=== PATIENT | female | born 1980 | race Caucasian/White ===

== ENCOUNTER 2018-01-07 06:02 | Inpatient (IN) | payer BC ==
[~2018-01-07 06:02] MED LIST: Gentamicin ADULT (*) 300 MG in NS 0.9% 250 ML* 250 ML IVPB SCH
[2018-01-07] MEDS ORDERED: Sodium Citrate/Citric Acid* 15 ML UDC ONE (07:09)
[2018-01-07] MEDS ORDERED: Clindamycin 900 MG IVPREMIX(* 900 MG/50 ML SDV IV ONE (07:10)
[2018-01-07] MEDS ORDERED: oxyCODONE/Acetamin 5/325 MG* TAB PO PRN (07:32)
[2018-01-07] MEDS ORDERED: Glycerin ADULT SUPP PR PRN (07:32)
[2018-01-07] MEDS ORDERED: Dibucaine 1% 28.35 GM TUBE PR PRN (07:32)
[2018-01-07] MEDS ORDERED: Witch Hazel PAD* JAR TOPICAL PRN (07:32)
[2018-01-07] MEDS ORDERED: Ondansetron INJ* 2 MG/ML VIAL ONE (07:43)
[2018-01-07] MEDS ORDERED: OXYTOCIN* 10 UNITS/ML 1 ML VIAL ONE (07:43)
[2018-01-07] MEDS ORDERED: Ketorolac INJ* 30 MG/ML 1 ML VIAL ONE (07:43)
[2018-01-07] MEDS ORDERED: Bupivacaine-MPF SPINAL* 7.5 MG/ML - 2ML AMP ONE (07:44)
[2018-01-07] MEDS ORDERED: Lidocaine 2% PF * 5 ML VIAL ONE (07:44)
[2018-01-07] MEDS ORDERED: Acetaminophen IV 1GM/100ML * 1,000 MG/100 ML VIAL IVPB ONE (07:58)
[2018-01-07] MEDS ORDERED: HYDROmorphone INJ* 0.5 MG/0.5 ML SYRINGE IV PRN (07:58)
[2018-01-07] MEDS ORDERED: oxyCODONE TAB* 5 MG TAB PO PRN (07:58)
[2018-01-07] MEDS ORDERED: Naloxone* 0.4 MG/ML 1 ML VIAL IV PRN (07:58)
[2018-01-07] MEDS ORDERED: DiMENhydriNATE IV* 50 MG/ML VIAL IV PUSH PRN (07:58)
[2018-01-07] MEDS ORDERED: Oxytocin in LR* 20 UNITS/1,000 ML BAG IVPB SCH (08:00)
[2018-01-07] MEDS ORDERED: Phenylephrine IV* 40 MCG/ML 10 ML SYRINGE ONE ×2 (08:52→10:45)
[2018-01-07] MEDS: Simethicone TAB* 80 MG TAB.CHEW PO SCH ×3 (09:46→18:11)
[2018-01-07] MEDS: Docusate CAP* 100 MG PO SCH ×2 (09:46→14:08)
[2018-01-07 10:55] LABS: ABS Basophils 0.1 10^3/ul (0-0.2); ABS Eosinophils 0.1 10^3/ul (0-0.6); ABS Lymphocytes 2.5 10^3/ul (1.0-4.8); ABS Neutrophils 8.6 10^3/ul (1.5-7.7); ABS Nucleated RBC 0 10^3/ul; Eosinophil % 1.2 % (0-6); Hematocrit 31 % (35-47); Hemoglobin 10.5 g/dl (12.0-16.0); Lymphocyte % 20.4 % (25-47); Mean Corpuscular HGB Conc 34 g/dl (31-36); Mean Corpuscular Hemoglobin 30 pg (27-31); Mean Corpuscular Volume 89 fL (80-97); Nucleated Red Blood Cells % 0.1; Platelet Count 175 10^3/ul (150-450); Red Blood Count 3.45 10^6/ul (4.00-5.40); Red Cell Distribution Width 13 % (10.5-15); White Blood Count 12.4 10^3/ul (3.5-10.8)
[2018-01-07] MEDS ORDERED: Gentamicin ADULT (*) 40 MG/ML VIAL IVPB ONE (10:56)
[2018-01-07] MEDS ORDERED: Oxytocin in LR* 20 UNITS/1,000 ML BAG IVPB ONE (11:34)
[2018-01-07] MEDS: Ibuprofen TAB* 600 MG PO PRN ×2 (12:12→18:11)
--- NOTE | 2018-01-07 12:33 | OP ---
DATE OF OPERATION: 01/07/18 - ROOM #117 DATE OF : 76 SURGEON: Rebecca Don MD PATHOLOGY SECRETARY: Willard Steven MD ANESTHESIOLOGIST: Kirsten Kinney MD ANESTHESIA: Spinal. PRE-OP DIAGNOSES: Intrauterine , 38-0/7 weeks; prior myomectomy; desires repeat section. POST-OP DIAGNOSES: Intrauterine , 38-0/7 weeks; prior myomectomy; desires repeat section, delivered. OPERATIVE PROCEDURE: Repeat low transverse section with vacuum extraction of head. ESTIMATED BLOOD LOSS: 500 cc. URINE OUTPUT: 400 cc of clear yellow urine. FLUIDS: 1200 cc of crystalloid. FINDINGS: Revealed a vertex male, ROT, converted to vertex. No meconium, no nuchal cord, vigorous at , Apgars were 9 at one minute and 9 at five minutes, weight was 7 pounds and 8 ounces. Placenta was allowed to deliver spontaneously. Three-vessel cord intact. Normal-appearing tubes and ovaries bilaterally. No evidence of adhesions. Prior myomectomy seen with defect in the anterior uterine wall above the incisional site. COMPLICATIONS: None apparent. DISPOSITION: Stable to recovery room. DESCRIPTION OF PROCEDURE: The patient was placed in dorsal lithotomy position. The abdomen was prepped and draped in sterile standard fashion. Anesthesia confirming good anesthesia. Incision was made through prior incisional site with a scalpel. This was carried down to fascia. Fascia was scored in the midline. The fascial incision was extended laterally and superiorly. Fascia was taken down superiorly with a sharp dissection and inferiorly with blunt and sharp dissection. Peritoneum was then entered bluntly and extended bluntly. Bladder blade was inserted. Uterine segment was identified. Lower uterine segment was clamped with an Allis. An incision was made with scalpel, carried down through to the membranes. The incision was extended bluntly and amniotomy was then created for clear fluid. The head was found to be ROT, converted to direct OA. A vacuum was placed and the head was then extracted. No nuchal cord was appreciated. No meconium. Cord was allowed to pulse for greater than 60 seconds. Cord was then clamped doubly and then cut and the infant was handed off to waiting skidder, Dr. Hernandez. Appropriate cord blood was obtained. Placenta was allowed to deliver spontaneously. Uterus was exteriorized, cavity was wiped clean with moist laparotomy sponge, noted to be free of any membranes or placental tissue. The uterus was wrapped in a warm moist laparotomy sponge and tubes and ovaries were noted to have normal appearance. The hysterotomy site was then reapproximated using 0 Vicryl x2, first layer running locked, second layer running imbricated. Uterus was returned intraabdominally. Hysterotomy site was visualized and noted to be hemostatic. The peritoneum was then reapproximated using 3-0 Vicryl in a running fashion. Subfascial area was visualized and noted to be hemostatic. The fascia was then reapproximated using 0 Vicryl x2 in a running fashion. The subcutaneous Camper's fascia was lavaged. Hemostasis was assured with Bovie coagulation. It was greater than 2-cm thickness and the Camper's fascia was then reapproximated using 3-0 Vicryl x1 with multiple interrupted sutures for complete reapproximation of the space. The skin was then reapproximated using a 4-0 Monocryl and a subcuticular fashion. All sponge, needle, instrument, and blade counts were correct throughout the case. The patient tolerated the procedure well and went to recovery room in stable condition. [id number]/[facility] #: [id number] MAIKEL
[2018-01-07] MEDS ORDERED: Misoprostol TAB* 200 MCG ONE (15:12)
[2018-01-07] MEDS ORDERED: Methylergonovine INJ* 0.2 MG/ML 1ML AMP ONE (15:16)
[2018-01-07] MEDS: Acetaminophen TAB* 325 MG PO PRN ×2 (15:23→20:09)
[2018-01-07] MEDS ORDERED: Clindamycin 900 MG IVPREMIX(* 900 MG/50 ML SDV IV SCH (16:00)
[2018-01-07] MEDS ORDERED: Gentamicin ADULT (*) 120 MG in NS 0.9% 100 ML* 100 ML IVPB ONE (16:30)
[2018-01-07] MEDS: oxyCODONE/Acetamin 5/325 MG* TAB PO PRN (21:14)
[2018-01-08] MEDS: Docusate CAP* 100 MG PO SCH ×4 (00:11→21:27)
[2018-01-08] MEDS: Simethicone TAB* 80 MG TAB.CHEW PO SCH ×5 (00:11→21:27)
[2018-01-08] MEDS: Ibuprofen TAB* 600 MG PO PRN ×4 (00:11→21:27)
[2018-01-08] MEDS: oxyCODONE/Acetamin 5/325 MG* TAB PO PRN ×5 (01:33→18:37)
[2018-01-08 07:38] LABS: ABS Basophils 0 10^3/ul (0-0.2); ABS Eosinophils 0.2 10^3/ul (0-0.6); ABS Lymphocytes 2.2 10^3/ul (1.0-4.8); ABS Neutrophils 8.7 10^3/ul (1.5-7.7); ABS Nucleated RBC 0 10^3/ul; Eosinophil % 1.4 % (0-6); Hematocrit 23 % (35-47); Hemoglobin 7.8 g/dl (12.0-16.0); Lymphocyte % 18.2 % (25-47); Mean Corpuscular HGB Conc 34 g/dl (31-36); Mean Corpuscular Hemoglobin 30 pg (27-31); Mean Corpuscular Volume 89 fL (80-97); Mean Platelet Volume 8.5 um3 (7.4-10.4); Nucleated Red Blood Cells % 0; Platelet Count 160 10^3/ul (150-450); Red Blood Count 2.63 10^6/ul (4.00-5.40); Red Cell Distribution Width 14 % (10.5-15); White Blood Count 12.2 10^3/ul (3.5-10.8)
[2018-01-08] MEDS: Ferrous Gluconate TAB* 324 MG TAB PO SCH ×2 (08:43→21:27)
[2018-01-08] MEDS: Levothyroxine TAB* 75 MCG TAB PO SCH (09:17)
--- NOTE | 2018-01-08 20:34 | PTEDU ---
Patient Name: VIOLETA HOROWITZ VIOLETA HOROWITZ selected video: BBOB: Nurturing Your Gorgeous &Growing Baby by to view o n 01/08/2018 at 8:33:56 [id number]
--- NOTE | 2018-01-08 21:04 | PTEDU ---
Patient Name: VIOLETA HOROWITZ VIOLETA HOROWITZ selected video: Follow Me Mum: The [place] to Successful to view on 01/09/20 18 at 9:03:[address] [id number]
[2018-01-09] MEDS: oxyCODONE/Acetamin 5/325 MG* TAB PO PRN ×3 (01:15→12:04)
[2018-01-09] MEDS: Ibuprofen TAB* 600 MG PO PRN ×2 (04:36→12:04)
[2018-01-09] MEDS: Levothyroxine TAB* 75 MCG TAB PO SCH (07:02)
[2018-01-09 08:08] VITALS: BP 102/66
[2018-01-09] MEDS: Docusate CAP* 100 MG PO SCH (08:43)
[2018-01-09] MEDS: Simethicone TAB* 80 MG TAB.CHEW PO SCH ×2 (08:43→12:04)
[2018-01-09] MEDS: Ferrous Gluconate TAB* 324 MG TAB PO SCH (10:42)
== END 2018-01-09 12:26 | disposition home or self-care (01) | DRG 540 ==
LOC: MCHOB 06:02
PROVIDERS: ADMIT Obstetrics & Gynecology; ATTEND Obstetrics & Gynecology
PROC: 10D00Z1 Extraction of Products of Conception, Low, Open Approach (ICD-10-PCS; 2018-01-07)
PROC: 4A1HX4Z Monitoring of Products of Conception, Cardiac Electrical Activity, External Approach (ICD-10-PCS; principal; 2018-01-07 07:45)
DX: O34.211 Maternal care for low transverse scar from previous cesarean delivery (principal); O72.1 Other immediate postpartum hemorrhage; O99.284 Endocrine, nutritional and metabolic diseases complicating childbirth; E03.9 Hypothyroidism, unspecified; Z3A.38 38 weeks gestation of pregnancy; Z37.0 Single live birth; O90.81 Anemia of the puerperium
CPT/HCPCS: 36415; 85025; A9270-GY; J1580; J1885; J2210; J2405; J2590

== ENCOUNTER 2019-08-08 07:10 | Emergency (ER) | payer BC ==
--- OUTSIDE RECORDS SUMMARY | 2019-08-08 07:15 | XMS REPORT | Continuity of Care Document ---
:1980 External Reference #:[id number] Author Name Tamra Van M.D. Address [address] [address] Care Team Providers Name Role Phone Julio Patel MD - Neurological Care Team Information Auto Bumper Mechanic [phone] Surgery Tamra Van M.D. - Family Medicine Care Team Information Auto Bumper Mechanic Unavailable Problems Active Problems Provider Date Hypothyroidism Tara Kern M.D. Onset: 05/20/2012 Vitamin D deficiency Tara Kern M.D. Onset: 02/15/2015 Hyperlipidemia Tamra Van M.D. Onset: 07/07/2019 Social History Type Date Description Comments Sex Unknown Tobacco Use Start: Unknown Never Smoked Cigarettes ETOH Use Rare 1 drink every three months. Tobacco Use Start: Unknown Patient has never smoked Smoking Status Reviewed: 07/07/19 Patient has never smoked Allergies, Adverse Reactions, Alerts Active Allergies Reaction Severity Comments Date Penicillin unable to breath Severe Sulfa Drugs as a child Medications Active Medications SIG Qnty Indications Ordering Provider Date Levothyroxine Sodium 1 by mouth 90tabs E03.9 Tamra Van, 07/07/2019 75mcg every day M.D. Tablets [place] Control Unknown History Medications No Active Medications Unknown 03/20/2019 - 03/20/2019 Levothyroxine Sodium Take 1 Tablet 90tabs E03.9 Tara Mccurdy, 03/20/2019 - By Mouth Every [employer] DES[employer]ER 07/07/2019 50mcg Tablets Day Immunizations CPT Code Status Date Vaccine Lot # [id number] Given 05/03/2008 Tdap Tetanus, W Pertussis [id number] Vital Signs Date Vital Result Comment 07/07/2019 9:49am BP Systolic 116 mmHg BP Diastolic 64 mmHg Heart Rate 66 /min Body Temperature 98.8 F Respiratory Rate 16 /min Height 64.25 inches 5'4.25" Measured 07/07/2019 Weight 152.12 lb BMI (Body Mass Index) 25.9 kg/m2 Right Visual Acuity Distance 20/20 Left Visual Acuity Distance 20/25 03/20/2019 11:48am BP Systolic 120 mmHg BP Diastolic 70 mmHg Heart Rate 60 /min Body Temperature 98.4 F Respiratory Rate 16 /min Weight 152.00 lb Results Test Acquired Date Facility Test Result H/L Range Note Laboratory test 07/02/2019 Fermin Lizy([facility]) Vitamin D25 31 30-100 finding Free T4 0.78 ng/dL 0.75-1.54 TSH 4.63 mIU/L 0.50-6.00 CBC Electronic [facility] 07/02/2019 Fermin Lizy(a) WBC 8.2 x10^3/UL 4.0- 10.0 RBC 4.37 x10^6/UL 3.93-6.00 HGB 13.0 g/dL 12.0-17.0 HCT 39 % 35-50 MCV 88.6 fL 80.0-95.0 MCH 29.7 pg 25.6-32.2 MCHC 33.6 g/dL 32.2-36.0 RDW-CV 12.5 % 11.6-14.4 PLT 200 x10^3/UL 163-400 MPV 10.3 fL 9.4-12.4 Andressa# 5.57 x10^3/UL 1.56-6.13 Lymph# 1.98 x10^3/UL 1.18-3.74 Summers# 0.52 x10^3/UL 0.24-0.82 Eos # 0.1 x10^3/UL 0.0-0.5 Baso # 0.02 x10^3/UL 0.01-0.08 Andressa% 68.0 % 34.0-70.0 Lymph % 24.1 % 20.0-52.0 Summers% 6.3 % 5.0-12.0 Eos% 1.2 % 0.7-7.0 Baso% 0.2 % 0.1-1.2 Comprehensive Metabolic 07/02/2019 Fermin Lizy([facility]) Sodium 140 mEq/L 134-149 Prof Potassium 4.0 mEq/L 3.6-5.5 Chloride 96 mEq/L 94-112 Carbon Dioxide 23 mEq/L 21-32 Glucose 90 mg/dL 70-105 BUN 10 mg/dL 6-26 Creatinine 0.9 mg/dL 0.6-1.4 BUN/Creat Ratio 11.1 CALC 8.0-36.0 Calcium 9.2 mg/dL 8.6-10.2 Total Protein 6.9 g/dL 6.4-8.3 Albumin 4.2 g/dL 3.8-5.5 Globulin 2.7 g/dL 2.0-4.8 A/G Ratio 1.6 CALC 0.6-2.3 Alk. Phosphatase 43 U/L 30-110 Alt (SGPT) 14 U/L 7-35 Ast (Sgot) 13 U/L 5-34 Total Bilirubin 0.4 mg/dL 0.2-1.3 GFR Non- >60 ml/min/1.73m^ >=60 GFR >60 ml/min/1.73m^ >=60 Lipid Profile 07/02/2019 Christensen Lizy([facility]) Cholesterol 258 mg/dL High 120-200 Triglycerides 218 mg/dL High 30-200 HDL Cholesterol 47 mg/dL 30-85 LDL (Calculated) 167 CALC High 0-129 VLDL Cholesterol 44 mg/dL 0-50 HDL Risk Factor 5.5 CALC High 0.0-4.4 Laboratory test 03/20/2019 Christensen Lizy([facility]) Free T4 0.53 ng/dL Low 0.75-1.54 finding Free T3 1.91 pg/mL Low 2.00-4.90 TSH 7.99 mIU/L High 0.50-6.00 Urine (Fma) 03/20/2019 family medicine SP Grav 1.025 (607)- - Urine, ([facility]/CTX) NEGATIVE Procedures Date Code Description Status 07/07/2019 94959 Vision Test- screening test of visual acuity, Completed quantitative, bila Medical Devices Description No Information Available Encounters Type Date Location Provider Dx Diagnosis Office Visit 03/20/2019 Main Office PABLO Wilhelm E03.9 Hypothyroidism , 11:30a unspecified N92.6 Irregular menstruation, unspecified Z32.02 Encounter for test, result negative Assessments Date Code Description Provider 07/07/2019 Z00.00 Encounter for general adult medical Tamra Van M.D. examination without abnormal findings 07/07/2019 E03.9 Hypothyroidism, unspecified Tamra Van M.D. 07/07/2019 E55.9 Vitamin D deficiency, unspecified Tamra Van M.D. 07/07/2019 E78.5 Hyperlipidemia, unspecified Tamra Van M.D. 07/02/2019 E03.9 Hypothyroidism, unspecified Tamra Van M.D. 07/02/2019 E55.9 Vitamin D deficiency, unspecified Tamra Van M.D. 07/02/2019 Z00.00 Encntr for general adult medical exam w/o Tamra Van M.D. abnormal findings 03/20/2019 E03.9 Hypothyroidism, unspecified Tara Baileyr, [employer] DES[employer] ENGINEER 03/20/2019 N92.6 Irregular menstruation, unspecified Tara Calli, [employer] DESIGN ENGINEER 03/20/2019 Z32.02 Encounter for test, result Tara Mccurdy, [employer] DESIGN ENGINEER negative 02/09/2019 E03.9 Hypothyroidism, unspecified Danuta Argueta NP 02/09/2019 Z00.00 Encounter for general adult medical Danuta Argueta NP examination without abnormal findings 02/09/2019 E55.9 Vitamin D deficiency, unspecified Danuta Argueta NP Plan of Treatment Future Appointment(s):08/11/2019 9:15 am - Tamra Van M.D. at [id number] - Tamra Van M.D.Z00.00 Encounter for general adult medical examination without abnormal findingsComments:Encourage an active and healthy lifestyle with proper eating habits including fruits, vegetables, 6-8 glasses of water a day and monitoring portion size. Recommend 30 minutes of daily physical activityincluding walking, aerobic exercise, sports, yoga or dance. Any activity is better than no activity.Recommend routine eye and dental exams. Next physical is due in 1-2 years. Recommend annual influenza [id number] Hypothyroidism, unspecifiedNew Medication:Levothyroxine Sodium 75 mcg - 1 by mouth every dayNew Labs:TSH ([facility]), Ordered: Free T4 ([facility]), Ordered: 07/07/19Comments:increase to 75mcg daily, recheck labs 4-6 [id number] Vitamin D deficiency, unspecifiedComments:2000 units of vitamin D3 [id number] Hyperlipidemia, unspecifiedComments:Goal LDL is & lt;130, HDL >40, Triglycerides <200 Cholesterol level is high. To lower cholesterol, the [place] [employer] recommends eating a dietary pattern that emphasizes fruits, vegetables, whole grains, low-fat dairy products , poultry, fish and nuts such as the Mediterranean Diet. You should also limit red meat, alcohol and sugary foods and beverages. If you smoke, heart disease risks are another reason to quit. Being physically active is also important to prevent heart disease and stroke. Just 40 minutes of aerobic exercise of moderate to vigorous intensity done three to four times a week is enough to lower both cholesterol and high blood pressure. Brisk walking, swimming, bicycling or dance classes are examples.For more information visit: http:// www.heart.org/HEARTORG/or make a follow up appointment to discuss lifestyle modification. Recommend rechecking fasting blood work in 4-6 months with lifestyle modifications in place.AllComments:Medication Management Patient Understands medications she's taking? Yes No Are there Barriers to Adherence? Yes No Has the patient been asked about herbal supplements and therapies, and OTC meds? Yes No Functional Status Description No Information Available Mental Status Description No Information Available Referrals Description No Information Available
[2019-08-08 07:19] VITALS: BP 139/83
--- NOTE | 2019-08-08 07:41 | UC ---
Respiratory Complaint HPI - HPI Summary HPI Summary: The patient is a 39-year-old female who is had a cough for about a week and a half. For the last 5 days she has had facial pressure and pain. Her upper teeth and gums are sensitive. She has a left earache. She denies any fever or chills. She denies any chest pain or shortness of breath. She has no nausea vomiting or diarrhea. - History of Current Complaint Chief Complaint: UCGeneralIllness Stated Complaint: SINUS CONGESTION Time Seen by Provider: 08/08/19 07:22 Hx Obtained From: Patient Hx Last Menstrual Period: 08/05/19 Onset/Duration: Gradual Onset, Still Present Timing: Constant Severity Initially: Mild Severity Currently: Severe Pain Intensity: 8 Pain Scale Used: 0-10 Numeric Character: Cough: Nonproductive Aggravating Factors: Nothing Alleviating Factors: Nothing Associated Signs And Symptoms: Positive: Nasal Congestion, Sinus Discomfort - Allergies/Home Medications Allergies/Adverse Reactions: Allergies Allergy/AdvReac Type Severity Reaction Status Date / Time Penicillins Allergy Difficulty Verified 08/08/19 07:19 Breathing Sulfa (Sulfonamide Allergy Unknown Verified 08/08/19 07:19 Antibiotics) Reaction Details Home Medications: Home Medications Levothyroxine TAB* [Synthroid 75 MCG TAB*] 75 mcg PO DAILY@0600 tab 01/09/18 [ Rx Confirmed 08/08/19] DOXYcycline CAP(*) [DOXYcycline 100MG CAP(*)] 100 mg PO BID #14 cap 08/08/19 [Rx ] Fluticasone NASAL SPRAY 50MCG* [Flonase NASAL SPRAY 50MCG*] 2 spray BOTH NARES BID #1 btl 08/08/19 [Rx] Phenylephrine/Diphenhydramine [Sudafed PE Day-Night Tablet] 1 each PO DAILY WITH MEAL 08/08/19 [History Confirmed 08/08/19] PMH/Surg Hx/FS Hx/Imm Hx Previously Healthy: Yes - Surgical History Surgical History: Yes Surgery Procedure, Year, and Place: EAR TUBES A CHILD MYOMECTOMY 2011, [place] [facility] 2011, [facility]. C SECTION. LASER EYE - Family History Known Family History: Positive: Hypertension - Social History Alcohol Use: Rare Substance Use Type: None Smoking Status (MU): Never Smoked Tobacco Have You Smoked in the Last Year: No - Immunization History Most Recent Influenza Vaccination: declined Most Recent Tetanus Shot: 05/06/14 Most Recent Pneumonia Vaccination: none Review of Systems All Other Systems Reviewed And Are Negative: Yes Constitutional: Positive: Negative Skin: Positive: Negative Eyes: Positive: Negative ENT: Positive: Nasal Discharge, Sinus Congestion, Sinus Pain/Tenderness Respiratory: Positive: Cough Cardiovascular: Positive: Negative Gastrointestinal: Positive: Negative Genitourinary: Positive: Negative Motor: Positive: Negative Neurovascular: Positive: Negative Musculoskeletal: Positive: Negative Neurological/Mental Status: Positive: Negative Psychological: Positive: Negative Physical Exam Triage Information Reviewed: Yes Appearance: Well-Appearing, No Pain Distress, Well-Nourished Vital Signs: Initial Vital Signs Temp 98.0 F 08/08/19 07:15 Pulse 59 08/08/19 07:15 Resp 18 08/08/19 07:15 BP 139/83 08/08/19 07:15 Pulse Ox 98 08/08/19 07:15 Vital Signs Reviewed: Yes Eyes: Positive: Conjunctiva Clear ENT: Positive: Hearing grossly normal, TM bulging - L, TM dull - L, Sinus tenderness, Uvula midline. Negative: Nasal congestion, Nasal drainage, Tonsillar swelling, Tonsillar exudate Dental Exam: Normal Neck: Positive: Supple, Nontender, No Lymphadenopathy Respiratory: Positive: Lungs clear, Normal breath sounds, No respiratory distress, No accessory muscle use Cardiovascular: Positive: RRR, No Murmur Musculoskeletal: Positive: ROM Intact, No Edema Neurological: Positive: Alert Psychological Exam: Normal Skin Exam: Normal Respiratory Course/Dx - Differential Dx/Diagnosis Provider Diagnosis: Acute sinusitis, Left serous otitis media Discharge ED - Sign-Out/Discharge Documenting (check all that apply): Patient Departure All imaging exams completed and their final reports reviewed: No Studies - Discharge Plan Condition: Stable Disposition: HOME Prescriptions: DOXYcycline CAP(*) [DOXYcycline 100MG CAP(*)] 100 mg PO BID #14 cap Fluticasone NASAL SPRAY 50MCG* [Flonase NASAL SPRAY 50MCG*] 2 spray BOTH NARES BID #1 btl Patient Education Materials: Sinusitis (ED) Referrals: Tamra Van MD [Primary Care Provider] - 5 Days (if not improved) Additional Instructions: warm facial compresses saline nasal spray - Billing Disposition and Condition Condition: STABLE Disposition: Home
== END 2019-08-08 07:45 | disposition home or self-care (01) ==
LOC: UCEAST 07:10
DX: J01.90 Acute sinusitis, unspecified (principal); H65.92 Unspecified nonsuppurative otitis media, left ear; Z88.0 Allergy status to penicillin; Z88.2 Allergy status to sulfonamides
CPT/HCPCS: 99212; G0463